=== PATIENT | female | born 1960 | race Caucasian/White ===

== ENCOUNTER 2018-10-03 05:46 | Emergency (ER) | payer BC ==
[~2018-10-03] VITALS: Ht 160 cm; Wt 66.0 kg
[2018-10-03] MEDS ORDERED: IBUPROFEN 600MG TABLET PO ONE (07:45)
[2018-10-03 10:04] VITALS: BP 137/72
== END 2018-10-03 11:07 | disposition home or self-care (01) ==
LOC: ER 10:54
DX: S92.312A Displaced fracture of first metatarsal bone, left foot, initial encounter for closed fracture (principal); I10 Essential (primary) hypertension; W01.0XXA Fall on same level from slipping, tripping and stumbling without subsequent striking against object, initial encounter; Y93.89 Activity, other specified; Y92.520 Airport as the place of occurrence of the external cause
CPT/HCPCS: 29515; 73630; 99283